=== PATIENT | female | born 1995 | race Caucasian/White ===

== ENCOUNTER 2018-01-24 10:31 | Emergency (ER) | payer BC ==
[~2018-01-24] VITALS: Ht 160 cm; Wt 71.2 kg
[2018-01-24 10:53] VITALS: BP 116/71; Ht 160 cm; Wt 71.2 kg
== END 2018-01-24 12:39 | disposition home or self-care (01) ==
LOC: ED 10:31
DX: B09 Unspecified viral infection characterized by skin and mucous membrane lesions (principal)